=== PATIENT | female | born 2000 | race Caucasian/White ===

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

== ENCOUNTER → 2022-02-22 | Outpatient (REF) | payer OTHER ==
[~2022-02-22] MED LIST changes: +ALBU2.5V10 INH; -ALBU83IN INH
[2022-02-23 12:23] LABS: GC DNA AMPLIFICATION NEGATIVE (NEGATIVE)
[2022-02-25 12:07] LABS: HSV-1 DNA Negative (Negative); HSV-2 DNA Negative (Negative)
== END ==
LOC: M LAB REF 09:05
PROVIDERS: ATTEND Physician Assistant
DX: R30.0 Dysuria (principal); N77.1 Vaginitis, vulvitis and vulvovaginitis in diseases classified elsewhere

== ENCOUNTER 2024-05-18 20:10 | Emergency (ER) | payer OTHER ==
[~2024-05-18] VITALS: Ht 162.6 cm; Wt 74.8 kg
[2024-05-18 20:12] VITALS: BP 114/72; TEMP 97.7; O2SAT 100
[2024-05-18] MEDS: hydrOXYzine 50 MG TAB PO ONE (21:27)
[2024-05-18] MEDS ORDERED: HYDR-3363 PO (21:37)
== END 2024-05-18 21:42 | disposition home or self-care (01) ==
LOC: M ED 20:10
DX: F41.9 Anxiety disorder, unspecified (principal); J45.909 Unspecified asthma, uncomplicated

== ENCOUNTER → 2024-05-23 | Outpatient (REF) | payer OTHER ==
[~2024-05-23] MED LIST changes: +HYDR-3363 PO
[2024-05-23 17:25] LABS: ALBUMIN 4.4 G/DL (3.2-5.2); ALKALINE PHOSPHATASE 69 U/L (35-104); ALT/SGPT 14 U/L (7.0-40); AST/SGOT 14 U/L (<34); BILIRUBIN,TOTAL 0.5 MG/DL (0.3-1.2); BLOOD UREA NITROGEN 16 MG/DL (9-23); CALCIUM LEVEL 9.7 MG/DL (8.5-10.1); CARBON DIOXIDE LEVEL 26 MMOL/L (20-31); CHLORIDE LEVEL 105 MMOL/L (98-107); CREATININE FOR GFR 0.66 MG/DL (0.55-1.30); GLOMERULAR FILTRATION RATE > 60.0 (>60); GLUCOSE, FASTING 83 MG/DL (60-100); POTASSIUM SERUM 4.5 MMOL/L (3.5-5.1); SODIUM LEVEL 143 MMOL/L (136-145)
[2024-05-23 17:27] LABS: THYROID STIMULATING HORMONE 1.133 uIU/ML (0.55-4.78); TOTAL 25(OH) VITAMIN D 15.8 NG/ML (20.0-100.0)
== END ==
LOC: M LAB REF 15:11
PROVIDERS: ATTEND Student in an Organized Health Care Education/Training Program
DX: F41.8 Other specified anxiety disorders (principal)